=== PATIENT | male | born 1965 | race Caucasian/White ===

== ENCOUNTER → 2018-04-15 10:51 | Outpatient (CLI) | payer BC, SELFPAY ==
--- NOTE | 2018-04-15 11:03 | US_ITS ---
US abd. aorta screening HISTORY: ITS.REASON: MIDLINE THORACIC BACK PAIN,SHARP PAIN ORDERING PHYSICIAN: Karen Rowland PATIENT AGE: 52 years Comparison: None FINDINGS: There is no evidence of abdominal aortic aneurysm. Small amount of plaque is present within the abdominal aorta. Proximal common iliacs are unremarkable T2 to approximately 1 cm. IMPRESSION: No evidence of abdominal aortic aneurysm
--- NOTE | 2018-04-15 11:07 | XR_ITS ---
XR chest 2V HISTORY: ITS.REASON: THORACIC BACK PAIN ORDERING PHYSICIAN: Karen Rowland PATIENT AGE: 52 years COMPARISON: None FINDINGS: The cardiomediastinal silhouette and pulmonary vascularity are within normal limits. The lungs are clear without infiltrates, suspicious nodules, or pleural effusions. There is vague nodularity noted at the fifth interspace on the left anteriorly could even be due to a nipple shadow. This may be confirmed with follow-up. No acute bony abnormalities. IMPRESSION: No acute finding
[2018-04-15 13:16] LABS: Basophils % 0.5 % (0.1-2.0); Eosinophils # 0.1 K/mm3 (0.0-0.4); Eosinophils % 0.9 % (0.1-12.0); Hematocrit 54.6 % (42.0-52.0); Hemoglobin 17.8 g/dL (14.1-18.0); Lymphocytes # 2.6 K/mm3 (0.7-4.5); Lymphocytes % 37.4 % (10-50); Mean Corpuscular HGB Conc 32.6 g/dL (31.8-35.4); Mean Corpuscular Hemoglobin 30.4 pg (27.0-31.2); Mean Corpuscular Volume 93.3 fl (80-94); Mean Platelet Volume 7.4 fl (7.4-10.4); Monocytes # 0.4 K/mm3 (0.1-1.0); Monocytes % 5.1 % (1.7-9.3); Neutrophils # 3.8 K/mm3 (1.8-7.8); Platelet Count 234 K/mm3 (142-424); Red Blood Count 5.86 M/mm3 (4.60-6.20); Red Cell Distribution Width 12.5 % (11.5-17.5); White Blood Count 6.9 K/mm3 (4.8-10.8)
[2018-04-15 15:52] LABS: D-Dimer 168 ng/mL (0-400)
[2018-04-15 16:19] LABS: Alanine Aminotransferase 52 U/L (12-78); Alkaline Phosphatase 107 U/L (46-116); Anion Gap 15.2 mEq/L (5-15); Aspartate Amino Transferase 27 U/L (15-37); Bilirubin,Total 1.2 mg/dL (0.2-1.0); Blood Urea Nitrogen 12 mg/dL (7-18); Calcium 9.7 mg/dL (8.5-10.1); Carbon Dioxide 27 mmol/L (21.0-32.0); Chloride 101 mmol/L (98-107); Creatinine,Serum 0.89 mg/dL (0.70-1.30); Estimated Glomerular Filt Rate 90 ml/min (>60); GFR (African American) 109 ML/MIN (>60); Globulin 4.1 gm/dl (1.3-3.2); Glucose 94 mg/dL (74-106); Potassium 5.2 mmoL/L (3.5-5.1); Sodium 138 mmol/L (136-145); Total Protein,Serum 8.1 gm/dL (6.4-8.2); Troponin I < 0.02 ng/ml (0.00-0.06)
== END ==
PROVIDERS: PCP Nurse Practitioner; Visit Provider Nurse Practitioner
DX: M54.6 Pain in thoracic spine (principal); R52 Pain, unspecified
CPT/HCPCS: 36415; 71046; 76705; 80053; 83880; 84484; 85025; 85378

== ENCOUNTER → 2018-07-09 10:19 | Outpatient (CLI) | payer BC, SELFPAY ==
--- NOTE | 2018-07-09 10:27 | XR_ITS ---
XR knee RT 3V HISTORY: ITS.REASON: SWELLING OF RIGHT KNEE JOINT ORDERING PHYSICIAN: Caitlyn Knott PATIENT AGE: 52 years COMPARISON: None FINDINGS: No fracture or dislocation. No lytic or blastic change. Normal mineralization. No significant arthritic changes evident. There is no definite effusion. There is mild soft tissue swelling over the patella and just inferior to the patella. No other significant findings, there are no foreign bodies. IMPRESSION: Possible mild prepatellar bursitis and/or possible focal contusion otherwise negative right knee
== END ==
PROVIDERS: PCP Nurse Practitioner Family; Visit Provider Nurse Practitioner Family
DX: M25.461 Effusion, right knee (principal)
CPT/HCPCS: 73562

== ENCOUNTER 2020-06-17 02:13 | Inpatient (IN) | payer BC, SELFPAY ==
[2020-06-17] VITALS (31 sets, daily range): BP systolic 103–151; BP diastolic 56–98; PULSE 49–89; RESP 14–20; TEMP 36.4–36.8; O2SAT 93–99; BMI 30.2; BMI 31.1
--- NOTE | 2020-06-17 | IR_ITS ---
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 COMPLICATIONS None Estimated Blood Loss: Less than 10 ML TECHNIQUE One percent lidocaine used to anesthetize the right anterior aspect of the wrist. The right radial artery was accessed via the Seldinger technique. A 6 Bengali sheath was placed in the right radial artery. 2.5 mg of verapamil, 800 mcg of nitroglycerin, 1mg Lidocaine and 5000 U Heparin were given through the arterial sheath. The Poppa catheter was also used to perform left heart catheterization, left ventriculogram and selective coronary angiogram. At the end the diagnostic angiogram therapeutic heparin was administered and the Poppa catheter was used to cannulate the right coronary artery. A Choice PT extra-support wire was used to push through the occlusion and a 2.5 x 12 mm balloon was deployed on 2 occasions in different areas to open the chronic occlusion. This restored antegrade flow. Following this a 3.0 x 38 mm Xience stent was deployed at 24 nacho reducing the stenosis to 0%. An additional 3 mm x 38 mm Xience stent was then deployed proximal to this overlapping the proximal edge of the first stent and deployed at 24 nacho. The balloon was advanced and deployed at 24 nacho in between the 2 stents. No reflow phenomenon occurred therefore 2 aliquots of 800 mcg of intracoronary nitroglycerin were administered which restored antegrade normal OTTO-3 flow. Distally there was improved flow with angiographic evidence of competitive flow from the distal collateralization from the LAD and septal perforators. At the end of the procedure the apparatus was removed the sheath was removed good hemostasis was achieved using TR banding patient was transferred to the postop holding in stable condition ANGIOGRAPHIC RESULTS The left main artery Normal The left anterior descending artery Has proximal 20 to 30% stenoses with mid vessel 20% stenosis and distal 30% stenoses The circumflex artery Is nondominant yet still a large vessel with proximal 20% stenosis. 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 Brilinta 90 twice daily plus aspirin 81 mg daily for 1 year 2. LDL less than 55 3. Cardiac rehabilitation 4. Avoidance of tobacco products 5. ETHAN inhibitors and beta-blockers once hemodynamically tolerable Electronically signed by : Lele Cintron, 06/17/2020 10:32:50
--- NOTE | 2020-06-17 02:09 | ECG_ITS ---
APPROVED REPORT Exam: Resting ECG HR:66 bpm ECG Measurements Heart Rate 66 AXES NC 126 P 49 QRSd 92 QRS 60 QT 398 T 102 QTc 417 Conclusion Normal sinus rhythm Nonspecific ST abnormality Abnormal ECG Electronically signed by : Zelalem Love, 06/17/2020 06:43:08
--- NOTE | 2020-06-17 02:25 | XR_ITS ---
PROCEDURE: XR CHEST PORTABLE CLINICAL HISTORY: cp Chest pain COMPARISON: CR CXR2V XR chest 2V from 04/15/2018 CR XR CHEST 2V from 04/19/2019 FINDINGS: There is cardiomegaly without failure. Nodular opacity noted overlying the left lower lobe and may be due to a granuloma. No lobar consolidation or collapse. COPD suspected. No acute bony findings. IMPRESSION: As above, no acute finding Dictated by: Aguilar Monae MD 06/17/2020 06:29 Aguilar Monae MD in [place] 06/17/2020 06:29
--- NOTE | 2020-06-17 02:28 | HMH.EDCP ---
ED Disposition Clinical Impression: Non-STEMI (non-ST elevated myocardial infarction), Tobacco use, Obesity (BMI 30.0-34.9) Disposition: Admitted As Inpatient Condition on Discharge: Good Referrals: Zelalem Butler MD [Primary Care Provider] - - Critical Care Critical Care Time: No Attestation: On 06/17/20, the high probability of a clinically significant, sudden or life threatening deterioration of the following system(s) required my full and direct attention, intervention and personal management. The time I documented below is in addition to time spent performing reported procedures but includes the following listed in this critical care notation. Medical Decision Making - Medical Records Medical records reviewed: Yes: I reviewed the patient's medical records. - Robert Inquiry Pt receiving controlled substance: No Vital Signs: 06/17/20 02:14 06/17/20 02:15 06/17/20 02:35 Temperature 97.5 F L Temperature Source Oral Pulse Rate [Right] 89 73 Respiratory Rate 18 Blood Pressure [Right Arm] 138/89 151/97 H Blood Pressure Mean [Right Arm] 105 115 Blood Pressure Source [Right Arm] Automatic Cuff Blood Pressure Position [Right Arm] Supine 02 Sat by Pulse Oximetry 96 95 96 Oxygen Delivery Method Room Air Room Air Oxygen Flow Rate (LPM) 2 06/17/20 02:44 06/17/20 03:00 Temperature Temperature Source Pulse Rate [Right] 83 67 Respiratory Rate 15 18 Blood Pressure [Right Arm] 123/76 120/77 Blood Pressure Mean [Right Arm] 91 91 Blood Pressure Source [Right Arm] Automatic Cuff Automatic Cuff Blood Pressure Position [Right Arm] Supine Supine 02 Sat by Pulse Oximetry 96 97 Oxygen Delivery Method Nasal Cannula Nasal Cannula Oxygen Flow Rate (LPM) 2 2 - Lab Data Lab results reviewed: Yes: I reviewed the patient's lab results. Lab Results 06/17/20 02:15: WBC 10.5, RBC 5.37, Hgb 16.4, Hct 50.5, MCV 93.9, MCH 30.6, MCHC 32.5, RDW 12.4, Plt Count 199, MPV 7.8, Neut % (Auto) 72.8, Lymph % (Auto) 21.1, [place] % (Auto) 5.2, Eos % (Auto) 0.5, Baso % (Auto) 0.4, Neut # (Auto) 7.6, Lymph # (Auto) 2.2, [place] # (Auto) 0.6, Eos # (Auto) 0.1, Baso # (Auto) 0.0 06/17/20 02:15: Sodium 141, Potassium 4.4, Chloride 108 H, Carbon Dioxide 28, Anion Gap 9.4, BUN 14, Creatinine 0.90, Estimated Creat Clear 125, Estimated GFR 88, Est GFR ( Amer) 107, Glucose 138 H, Calcium 9.3, Troponin I 0.06 H, C-Reactive Protein 3.9 06/17/20 02:15: ESR 6 06/17/20 02:15: Procalcitonin < 0.030 06/17/20 02:15: SARS-CoV-2 IgG Ab (Rapid) Negative, SARS-CoV-2 IgM Ab (Rapid) Negative Result diagrams: 06/17/20 02:15 06/17/20 02:15 Orders (Tests/Meds): ED MEDICATIONS Generic Name Dose Route Start Last Admin Trade Name Freq PRN Reason Stop Dose Admin Nitroglycerin 0.4 mg 06/17/20 02:26 06/17/20 02:31 Nitroglycerin 0.4mg Sl Tablet SL 07/17/20 02:25 0.4 mg Q5MINP PRN Administration Chest Pain Discontinued Medications Generic Name Dose Route Start Last Admin Trade Name Freq PRN Reason Stop Dose Admin Aspirin 324 mg 06/17/20 02:26 06/17/20 02:29 Aspirin 81mg Chewable Tablet PO 06/17/20 02:27 324 mg ONCE ONE Administration Morphine Sulfate 2 mg 06/17/20 02:28 06/17/20 02:31 Morphine 2mg/Ml Syringe IV 06/17/20 02:29 2 mg ONCE ONE Administration Morphine Sulfate 2 mg 06/17/20 02:35 06/17/20 02:36 Morphine 2mg/Ml Syringe IV 06/17/20 02:36 2 mg ONCE ONE Administration Nitroglycerin 1 gm 06/17/20 02:39 06/17/20 02:40 Nitroglycerin 1 Gm Ointment TD 06/17/20 02:40 1 gm ONCE ONE Administration Ticagrelor 180 mg 06/17/20 02:26 06/17/20 02:30 Ticagrelor 90mg Tablet PO 06/17/20 02:27 180 mg ONCE ONE Administration ORDERS Category Date Time Status Chest XR -- portable [XR chest portable] Stat Exams 06/17/20 02:25 Taken Full Resp Panel w/COVID ([facility]) Routine Lab 06/17/20 02:15 Received Troponin I Q3H Lab 06/17/20 05:30 Ordered Troponin I Q3H Lab
--- NOTE | 2020-06-17 02:36 | PC.NURSE ---
place on oxygen due to cardiac changes on EKG - 12-lead
--- NOTE | 2020-06-17 02:41 | ECG_ITS ---
APPROVED REPORT Exam: Resting ECG HR:65 bpm ECG Measurements Heart Rate 65 AXES ID 132 P 55 QRSd 88 QRS 49 QT 426 T 71 QTc 443 Conclusion Normal sinus rhythm NSSTTW abnormality Abnormal ECG Electronically signed by : Zelalem Love, 06/17/2020 06:42:56
[2020-06-17 02:55] LABS: Adenovirus,PCR Not Detected (NotDetected); Bordetella Pertussis Not Detected (NotDetected); Chlamydophila Pneumoniae, PCR Not Detected (NotDetected); Coronavirus 19, PCR Not Detected (NotDetected); Coronavirus 229E Not Detected (NotDetected); Coronavirus NL63 Not Detected (NotDetected); Coronavirus OC43 Not Detected (NotDetected); Coronovirus HKU1,PCR Not Detected (NotDetected); Human Metapneumovirus Not Detected (NotDetected); Influenza A, PCR Not Detected (NotDetected); Influenza AH1, 2009 Not Detected (NotDetected); Influenza AH1, PCR Not Detected (NotDetected); Influenza AH3,PCR Not Detected (NotDetected); Influenza B, PCR Not Detected (NotDetected); Mycoplasma Pneumoniae, PCR Not Detected (NotDetected); Parainfluenza 1, PCR Not Detected (NotDetected); Parainfluenza 2, PCR Not Detected (NotDetected); Parainfluenza 3, PCR Not Detected (NotDetected); Parainfluenza 4, PCR Not Detected (NotDetected); Respiratory Syncytial Virus Not Detected (NotDetected); Rhinovirus/Enterovirus Not Detected (NotDetected)
[2020-06-17 02:57] LABS: Basophils % 0.4 % (0.1-2.0); Eosinophils # 0.1 K/mm3 (0.0-0.4); Eosinophils % 0.5 % (0.1-12.0); Hematocrit 50.5 % (42.0-52.0); Hemoglobin 16.4 g/dL (14.1-18.0); Lymphocytes # 2.2 K/mm3 (0.7-4.5); Lymphocytes % 21.1 % (10-50); Mean Corpuscular HGB Conc 32.5 g/dL (31.8-35.4); Mean Corpuscular Hemoglobin 30.6 pg (27.0-31.2); Mean Corpuscular Volume 93.9 fl (80-94); Mean Platelet Volume 7.8 fl (7.4-10.4); Monocytes # 0.6 K/mm3 (0.1-1.0); Monocytes % 5.2 % (1.7-9.3); Neutrophils # 7.6 K/mm3 (1.8-7.8); Neutrophils % 72.8 % (37.0-80.0); Platelet Count 199 K/mm3 (142-424); Red Blood Count 5.37 M/mm3 (4.60-6.20); Red Cell Distribution Width 12.4 % (11.5-17.5); White Blood Count 10.5 K/mm3 (4.8-10.8)
[2020-06-17 03:02] LABS: Chloride 108 mmol/L (98-107); Potassium 4.4 mmoL/L (3.5-5.1); Sodium 141 mmol/L (136-145)
[2020-06-17 03:05] LABS: Anion Gap 9.4 mEq/L (5-15); Blood Urea Nitrogen 14 mg/dl (9-20); Calcium 9.3 mg/dl (8.4-10.2); Carbon Dioxide 28 mmol/L (22.0-30.0); Creatinine Clearance Estimated 125 mL/min (50-200); Estimated Glomerular Filt Rate 88 ml/min (>60); GFR (African American) 107 ML/MIN (>60); Glucose 138 mg/dl (74-100)
[2020-06-17 03:11] LABS: C-Reactive Protein 3.9 mg/L (0-4)
[2020-06-17 03:19] LABS: Coronavirus 19 IgG Antibody Negative (Negative); Coronavirus 19 IgM Antibody Negative (Negative); Troponin I 0.06 ng/ml (0.00-0.034)
[2020-06-17 03:21] LABS: Erythrocyte Sedimentation Rate 6 mm/hr (0-20)
[2020-06-17 03:50] LABS: Procalcitonin < 0.030 ng/mL (0.0-2.0)
[2020-06-17 04:15] LABS: Cholesterol 280 mg/dl (140-200); HDL Cholesterol 47 mg/dl (40-60); Triglycerides 175 mg/dl (30-150); VLDL Cholesterol 35 mg/dL (0-40)
[2020-06-17 04:26] LABS: Direct LDL Cholesterol 191.53 mg/dL (100-129)
--- NOTE | 2020-06-17 04:47 | PC.NURSE ---
patient up to floor via wheelchair.
--- NOTE | 2020-06-17 06:32 | PC.NURSE ---
Pt is currently receiving echo at this time. He arrived to floor c/o soa. O2 2L NC applied per chest pain protocol and comfort. Has also c/o chest pressure, but states it has improved. Pt administered morphine 4 mg IV and has Nitro paste in place. Pt is currently sinus clari on telemetry. He is NPO for cardiac consult. No other concerns at this time. Will continue to monitor.
--- NOTE | 2020-06-17 06:53 | HMH.HP ---
*Admission Date: 06/17/20 *Chief complaint: Chest tightness *History of present illness: 54-year-old male with with no significant past medical history was awoken from sleep around 10:30 PM yesterday evening with tightness in his chest that radiated up towards his neck and into both arms to the level of the elbow. Patient initially thought he was just sore from recently beginning an exercise program. However when the chest tightness did not improve and patient noted associated shortness of breath and mild diaphoresis he came to the emergency department. In the ER patient's chest pressure was relieved with morphine and nitroglycerin. Initial assessment showed an abnormal EKG with ST depressions laterally. EKG normalized after treatment of patient's chest pressure. ER physician spoke with cardiology and plan was to admit with left heart catheterization later today. Patient has had recurrence of chest pressure within the last hour that was successfully resolved with use of morphine. Patient is a 1-1/2 pack/day smoker for the last 30 years. There is a family history of coronary artery disease in the patient's father. [facility] History I have reviewed the patient's past medical history: Yes Medical History: Denies:: Diabetes Mellitus Type 1, Diabetes Mellitus Type 2, MRSA *Have you ever received a pneumonia vaccine?: No *Have you received a flu vaccine this season?: No - *Social History Smoking Status: Current every day smoker Tobacco Type: cigarettes # Packs/Day (cigarettes): 2 Alcohol Intake: current Alcohol Intake Frequency:: 3 or more drinks per day Substance Use Type: marijuana *Occupational Status:: employed *Travel in the last 8 weeks: None Family Hx:: Stroke Review of Systems - Constitutional Denies body ache(s), Denies chills, Denies lack of energy - ENT Denies abnormal hearing, Denies difficulty swallowing - *Cardiovascular Reports chest pain, Reports chest pain at rest, Denies chest pain with activity, Denies leg pain with activity, Denies excessive sweating, Denies irregular heart rhythm - *Respiratory Denies change in phlegm color, Denies chest congestion, Denies cough, Denies shortness of breath - *Gastrointestinal Denies belching, Denies bloating, Denies loose stools, Denies heartburn - *Genitourinary Denies difficulty urinating, Denies painful urination - *Musculoskeletal Denies abnormal walking, Denies joint pain, Denies decreased muscle mass - *Neurologic Denies headache(s), Denies seizure-like activity Meds Home Medications Medication Instructions Recorded Confirmed Type No Known Home Medications 06/17/20 06/17/20 History Allergies Allergy/AdvReac Type Severity Reaction Status Date / Time codeine Allergy Verified 06/17/20 02:41 Exam Vital signs and Labs for Last 24 Hours: Temp Pulse Resp BP Pulse Ox 98.2 F 68 19 116/58 L 98 06/17/20 05:12 06/17/20 05:12 06/17/20 05:12 06/17/20 05:12 06/17/20 05:12 Laboratory Results - last 24 hr 06/17/20 02:15: WBC 10.5, RBC 5.37, Hgb 16.4, Hct 50.5, MCV 93.9, MCH 30.6, MCHC 32.5, RDW 12.4, Plt Count 199, MPV 7.8, Neut % (Auto) 72.8, Lymph % (Auto) 21.1, [place] % (Auto) 5.2, Eos % (Auto) 0.5, Baso % (Auto) 0.4, Neut # (Auto) 7.6, Lymph # (Auto) 2.2, [place] # (Auto) 0.6, Eos # (Auto) 0.1, Baso # (Auto) 0.0 06/17/20 02:15: Sodium 141, Potassium 4.4, Chloride 108 H, Carbon Dioxide 28, Anion Gap 9.4, BUN 14, Creatinine 0.90, Estimated Creat Clear 125, Estimated GFR 88, Est GFR ( Amer) 107, Glucose 138 H, Calcium 9.3, Troponin I 0.06 H, C-Reactive Protein 3.9 06/17/20 02:15: Chlamy pneumoniae PCR Not detected, Adenovirus (PCR) Not detected, B. pertussis DNA (PCR) Not detected, Coronavirus OC43 (PCR) Not detected, Coronavirus HKU1 (PCR) Not detected, Coronavirus 229E (PCR) Not detected, SARS-CoV-2 (PCR) Not detected, Coronavirus NL63 (PCR) Not detected, Human Metapneumovir PCR Not detected, Influenza A (H1) PCR Not detected, Influ A (H1N1/
[2020-06-17 07:03] LABS: Troponin I 0.52 ng/ml (0.00-0.034)
--- NOTE | 2020-06-17 07:05 | PC.NURSE ---
notified of Troponin 0.52
--- NOTE | 2020-06-17 07:15 | CA_ITS ---
APPROVED REPORT EXAM: Comprehensive 2D, Doppler, and color-flow Echocardiogram Grain Shoveler: Socorro Vargas RVT Ht: 5 ft 9 in Wt: 205lbs BSA: 2.09 BP: 151/97 mmHg Indications: NSTEMI,ABN EKF,ELEVATED TROP,SMOKER TDS-BODY HABITUS 2D Dimensions IVSd 1.35 cm M: 0.6-1.2 LVEF (Visual) 59.70 % PWd 0.78 cm M: 0.6 - 1.2 LA Volume 16.90 mL LVDd 6.03 cm M: 4.2 - 5.9 LA Volume Index 8.12 mL/m2 (M/F) 16-34 LVDs 4.08 cm M: 2.5 - 4.0 LVOT 1.66 cm (M/F) 1.5-2.5 M-Mode Dimensions LA Diam 3.65 cm (1.9-4.0) Ao Diam 3.37 cm (2.0-3.7) LV Diastology E Decel Time 190.00 (160-240 msec) E/A Ratio 0.8 MED E' 8.10 (< 7 cm/sec) E'/MED E' Ratio 7.83 (>14) LAT E' 8.40 (<10 cm/sec) E/LAT E' Ratio 7.55 (>14) Mitral Valve MV E Max [place]. 63.00 (40-130 cm/s) MV A Velocity 77.00 (40-130 cm/s) E/A Ratio 0.83 MV Decel. Time 190.00 (160-240 ms) MV PHT 56.00 ms Pulmonary Valve PV Peak Velocity 77.00 (50-150 cm/s) Tricuspid Valve TR P. Velocity 256.00 cm/s RAP Estimate 10.00 mmHg RVSP 36.30 mmHg Left Ventricle Technically difficult study because of the patient fact in poor acoustic windows. Left atrium is mildly enlarged, left ventricle is normal size, mild concentric left ventricular hypertrophy, visually estimated ejection fraction 50%, inferior basal wall appears to be moderately hypokinetic, endocardial surfaces are poorly visualized. Diastolic parameters are inconclusive. Right Ventricle Right atrium and right ventricle are mildly enlarged with normal contractility. Aortic Valve Aortic valve is thickened and calcified leaflet continue to display good mobility, there is no aortic stenosis or aortic insufficiency. Mitral Valve Mitral valve is grossly normal, there is trace mitral regurgitation. Tricuspid Valve Tricuspid valve is grossly normal, there is mild tricuspid regurgitation, calculated right ventricular systolic pressure 26 mmHg. Pulmonic Valve Pulmonic valve is poorly visualized. Great Vessels Aortic root is normal size. Inferior vena cava is mildly dilated with normal inspiratory collapse. Pericardium No significant pericardial effusion noted. Conclusion 1. Technically difficult study because of the patient factors and poor acoustic windows. Biatrial enlargement, normal left ventricular size, mild concentric left ventricular hypertrophy, visually estimated ejection fraction 50% with segmental wall motion abnormality described above, diastolic parameters are inconclusive. 2. Mildly enlarged right ventricle with normal contractility. 3. Trace mitral mild tricuspid regurgitation, calculated right ventricular systolic pressure 36 mmHg. 4. No significant pericardial effusion noted. 5. Inferior vena cava is mildly dilated with normal inspiratory collapse. Electronically signed by : Zain Mendez, 06/17/2020 09:50:10
--- NOTE | 2020-06-17 08:32 | P.CONPHA_ITS ---
[facility] Pharmacy VTE Monitoring - Patient Demographics Admission date: 06/17/20 Report Date: 06/17/20 Time: 08:32 Allergies/Adverse Reactions: Patient Allergies codeine Allergy (Verified 06/17/20 02:41) Height: 1.77 m Weight: 97.182 kg Patient Problems: Current Active Problems Non-STEMI (non-ST elevated myocardial infarction) (Acute) Tobacco use (Acute) Obesity (BMI 30.0-34.9) (Acute) Cigarette smoker (Acute) - VTE Risk Labs: VTE Related Lab Results Hgb 16.4 g/dL (14.1-18.0) 06/17/20 02:15 Hct 50.5 % (42.0-52.0) 06/17/20 02:15 Plt Count 199 K/mm3 (142-424) 06/17/20 02:15 BUN 14 mg/dl (9-20) 06/17/20 02:15 Creatinine 0.90 mg/dl (0.66-1.25) 06/17/20 02:15 Estimated Creat Clear 125 mL/min (50-200) 06/17/20 02:15 Was VTE Risk Assessment Performed: Yes VTE Risk Level: Low Risk Clinical Trial Participant: No - Prophylaxis VTE Prophylaxis Ordered?: Yes Types of VTE Prophylaxis: TEDS Knee High
--- NOTE | 2020-06-17 08:44 | HMH.CNCARD ---
History of Present Illness Consult date: 06/17/20 Requesting physician: Zelalem Butler Consult reason: chest pain Chief complaint: chest pain History of present illness: This is a 54 year old white gentleman who was admitted to the hospital with a non-STEMI. He states chest pain woke him up around 10:30 PM last night. He states that this was a pressure heavy sensation in the substernal aspect of his chest radiating to his bilateral arms down to about the elbows bilaterally and also radiating up into his neck and into his back. He states this is associated with shortness of breath and diaphoresis. He denies any nausea or vomiting. The patient states that his pain was 7 out of 10 in intensity and was constant for several hours. He states around 2 AM he decided to come into the emergency department he states that his symptoms did not improve until he was treated with morphine and nitroglycerin in the emergency department. He did have an abnormal EKG showing ST depression laterally on admission and then when he was treated with the morphine and nitroglycerin his EKG did improve. He denies any fever, chills, nausea, vomiting, diarrhea, PND or orthopnea. [facility] History I have reviewed the patient's past medical history: Yes Medical History: Denies:: Diabetes Mellitus Type 1, Diabetes Mellitus Type 2, MRSA *Have you ever received a pneumonia vaccine?: No *Have you received a flu vaccine this season?: No - *Social History Smoking Status: Current every day smoker Tobacco Type: cigarettes # Packs/Day (cigarettes): 2 Alcohol Intake: current Alcohol Intake Frequency:: 3 or more drinks per day Substance Use Type: marijuana *Occupational Status:: employed *Travel in the last 8 weeks: None Family Hx:: Stroke Meds Home Medications Medication Instructions Recorded Confirmed Type No Known Home Medications 06/17/20 06/17/20 History Allergies Allergy/AdvReac Type Severity Reaction Status Date / Time codeine Allergy Verified 06/17/20 02:41 Exam Vital signs and Labs for Last 24 Hours: Temp Pulse Resp BP Pulse Ox 97.6 F 63 18 118/61 97 06/17/20 08:00 06/17/20 08:00 06/17/20 08:00 06/17/20 08:00 06/17/20 08:00 Laboratory Results - last 24 hr 06/17/20 02:15: WBC 10.5, RBC 5.37, Hgb 16.4, Hct 50.5, MCV 93.9, MCH 30.6, MCHC 32.5, RDW 12.4, Plt Count 199, MPV 7.8, Neut % (Auto) 72.8, Lymph % (Auto) 21.1, [place] % (Auto) 5.2, Eos % (Auto) 0.5, Baso % (Auto) 0.4, Neut # (Auto) 7.6, Lymph # (Auto) 2.2, [place] # (Auto) 0.6, Eos # (Auto) 0.1, Baso # (Auto) 0.0 06/17/20 02:15: Sodium 141, Potassium 4.4, Chloride 108 H, Carbon Dioxide 28, Anion Gap 9.4, BUN 14, Creatinine 0.90, Estimated Creat Clear 125, Estimated GFR 88, Est GFR ( Amer) 107, Glucose 138 H, Calcium 9.3, Troponin I 0.06 H, C-Reactive Protein 3.9 06/17/20 02:15: Chlamy pneumoniae PCR Not detected, Adenovirus (PCR) Not detected, B. pertussis DNA (PCR) Not detected, Coronavirus OC43 (PCR) Not detected, Coronavirus HKU1 (PCR) Not detected, Coronavirus 229E (PCR) Not detected, SARS-CoV-2 (PCR) Not detected, Coronavirus NL63 (PCR) Not detected, Human Metapneumovir PCR Not detected, Influenza A (H1) PCR Not detected, Influ A (H1N1/09) PCR Not detected, Influenza A (H3) PCR Not detected, Influenza Type A (PCR) Not detected, Influenza Type B (PCR) Not detected, M. pneumoniae (PCR) Not detected, Parainfluenza 1 (PCR) Not detected, Parainfluenza 2 (PCR) Not detected, Parainfluenza 3 (PCR) Not detected, Parainfluenza 4 (PCR) Not detected, RSV (PCR) Not detected, Entero/Rhino (PCR) Not detected 06/17/20 02:15: ESR 6 06/17/20 02:15: Procalcitonin < 0.030 06/17/20 02:15: SARS-CoV-2 IgG Ab (Rapid) Negative, SARS-CoV-2 IgM Ab (Rapid) Negative 06/17/20 02:15: Triglycerides 175 H, Cholesterol 280 H, LDL Cholesterol Direct 191.53 H, VLDL Cholesterol 35, HDL Cholesterol 47, Cholesterol/HDL Ratio 6.0 H 06/17/20 05:39: Troponin I 0.52 H I & O for Last 24 hours: Intake & Output 05/27
[2020-06-17 08:57] LABS: Troponin I 1.65 ng/ml (0.00-0.034)
[2020-06-17 10:54] LABS: CATHL Activated Clotting Time 333 SEC (74-125)
--- NOTE | 2020-06-17 20:15 | PC.NURSE ---
PT IS RESTING IN BED. PT HAS BEEN AMBULATING IN THE ROOM AND TO THE BATHROOM. NO COMPLAINTS OF CHEST PAIN BUT PT STATES HE HAS WOKE UP A FEW TIMES FROM A DEEP SLEEP WITH SOME SOA. PT REALLY WANTS TO GO HOME TOMORROW. VSS. PT HAS BEEN SINUS CASEY/NSR T/O THE SHIFT. O2 SATURATION 95-99% ON ROOM AIR. DRESSING TO THE RT RADIAL C/D/I. LUNG SOUNDS CLEAR. ABDOMEN SOFT/NON TENDER WITH ACTIVE BOWEL SOUNDS
[2020-06-18] VITALS: BP 110/90; PULSE 70; PULSE 73; RESP 17; TEMP 36.7; O2SAT 94
[2020-06-18 04:00] VITALS: BP 143/92; PULSE 60; PULSE 71; RESP 17; TEMP 36.6; O2SAT 93
[2020-06-18 06:00] VITALS: BMI 31.0
[2020-06-18 06:54] LABS: Basophils % 0.3 % (0.1-2.0); Eosinophils # 0.1 K/mm3 (0.0-0.4); Eosinophils % 0.8 % (0.1-12.0); Hematocrit 48.6 % (42.0-52.0); Hemoglobin 16.2 g/dL (14.1-18.0); Lymphocytes # 2.5 K/mm3 (0.7-4.5); Lymphocytes % 27.9 % (10-50); Mean Corpuscular HGB Conc 33.3 g/dL (31.8-35.4); Mean Corpuscular Hemoglobin 31.2 pg (27.0-31.2); Mean Corpuscular Volume 93.6 fl (80-94); Mean Platelet Volume 8.2 fl (7.4-10.4); Monocytes # 0.5 K/mm3 (0.1-1.0); Monocytes % 5.5 % (1.7-9.3); Neutrophils # 5.8 K/mm3 (1.8-7.8); Neutrophils % 65.5 % (37.0-80.0); Platelet Count 182 K/mm3 (142-424); Red Blood Count 5.19 M/mm3 (4.60-6.20); Red Cell Distribution Width 12.5 % (11.5-17.5); White Blood Count 8.8 K/mm3 (4.8-10.8)
[2020-06-18 06:56] LABS: Chloride 108 mmol/L (98-107); Potassium 4.1 mmoL/L (3.5-5.1); Sodium 140 mmol/L (136-145)
[2020-06-18 06:59] LABS: Anion Gap 8.1 mEq/L (5-15); Blood Urea Nitrogen 7 mg/dl (9-20); Carbon Dioxide 28 mmol/L (22.0-30.0); Creatinine Clearance Estimated 147 mL/min (50-200); Estimated Glomerular Filt Rate 101 ml/min (>60); GFR (African American) 122 ML/MIN (>60)
[2020-06-18 07:00] LABS: Calcium 9.2 mg/dl (8.4-10.2); Glucose 121 mg/dl (74-100)
--- NOTE | 2020-06-18 07:11 | HMH.DCSUM ---
General - General Admission date:: 06/17/20 Discharge date: 06/18/20 HPI HPI: 54-year-old male with with no significant past medical history was awoken from sleep around 10:30 PM yesterday evening with tightness in his chest that radiated up towards his neck and into both arms to the level of the elbow. Patient initially thought he was just sore from recently beginning an exercise program. However when the chest tightness did not improve and patient noted associated shortness of breath and mild diaphoresis he came to the emergency department. In the ER patient's chest pressure was relieved with morphine and nitroglycerin. Initial assessment showed an abnormal EKG with ST depressions laterally. EKG normalized after treatment of patient's chest pressure. ER physician spoke with cardiology and plan was to admit with left heart catheterization later today. Patient has had recurrence of chest pressure within the last hour that was successfully resolved with use of morphine. Patient is a 1-1/2 pack/day smoker for the last 30 years. There is a family history of coronary artery disease in the patient's father. Hospital Course Hospital Course: Patient was admitted for serial enzymes and cardiology consultation with anticipated left heart catheterization. Second troponin increased to 0.52 and peaked at 1.65. 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 Brilinta 90 twice daily plus aspirin 81 mg daily for 1 year 2. LDL less than 55 3. Cardiac rehabilitation 4. Avoidance of tobacco products 5. ETHAN inhibitors and beta-blockers once hemodynamically tolerable After left heart catheterization patient remained stable. Bradycardia was witnessed both before and after left heart catheterization. Patient was continued on a nicotine patch for his nicotine dependence dependence. Patient admitted to anxiety over being hospitalized and being unable to smoke. Conversation was had with the patient on the day of discharge regarding the need for smoking cessation. Other findings on patient's evaluation while hospitalized included increased right ventricular size and increased right ventricular systolic pressures. Patient will need both pulmonary function testing and a sleep study as an outpatient. He does admit to snoring. On June 18 patient was discharged home. He will follow-up in my office this June 21. Patient will follow up with cardiology per their instructions. Objective Vital signs: Temp Pulse Resp BP Pulse Ox 97.9 F 71 17 143/92 H 93 L 06/18/20 04:00 06/18/20 04:00 06/18/20 04:00 06/18/20 04:00 06/18/20 04:00 no acute distress - *Routine Respiratory Exam Present: CTA bilaterally - *Routine Cardiovascular Exam Present: RRR Results Labs on day of discharge: Labs from last 24 hours 06/18/20 06/18/20 06/17/20 06:04 06:04 11:21 WBC 8.8 RBC 5.19 Hgb 16.2 Hct 48.6 MCV 93.6 MCH 31.2 MCHC 33.3 RDW 12.5 Plt Count 182 MPV 8.2 Neut % (Auto) 65.5 Lymph % (Auto) 27.9 Porter % (Auto) 5.5 Eos % (Auto) 0.8 Baso % (Auto) 0.3 Neut # (Auto) 5.8 Lymph # (Auto) 2.5 Porter # (Auto) 0.5 Eos # (Auto) 0.1 Baso # (Auto) 0.0 Activated Clotting Time 333 H* Sodium 140 Potassium 4.1 Chloride 108 H Carbon Dioxide 28 Anion Gap 8.1 BUN 7 L D Creatinine 0.80 Estimated Creat Clear 147 Estimated GFR 101 Est GFR ( Amer) 122 Glucose 121 H
--- NOTE | 2020-06-18 07:40 | PC.NURSE ---
shift summary pts lung sounds are clear with sats maintained 93% or above on room air with a rate ranging from 17-20. pt was NSR and sinus clari on the monitor. pt is alert and oriented X4. pt denies any nausea vomiting, or diarrhea.
[2020-06-18 08:00] VITALS: BP 107/68; PULSE 70; RESP 17; TEMP 36.7; O2SAT 97
--- NOTE | 2020-06-18 10:38 | PC.NURSE ---
Did attempt to clarify it DR. Butler wanted pt on statin and Aleksander in pharmacy did as well, pt not to have beta riana or sonja until hymodynamically stable. Awaiting clarification at this time. Did speak with pts daughter after he was d/cd and make her aware of the above. Pt was very rdy to leave this am and left at 0858.
--- NOTE | 2020-06-18 10:46 | HMH.PHACLD ---
Alfred Qureshi has received discharge medication counseling on the following medications: BRILINTA, ASPIRIN, AND LIPITOR PATIENT IS TO HOLD OFF ON ACEI/BETA ENRICO UNTIL HEMODYNAMICALLY STABLE PER CARDIOLOGY. BRILINTA WAS BROUGHT UP TO PATIENT'S ROOM BY CLINIC PHARMACY AND OTHER PRESCRIPTIONS WERE SENT TO [facility] [place]. PATIENT VERBALIZED UNDERSTANDING AND HAD NO QUESTIONS AT THIS TIME. -SE GOMEZ, REKHAD
== END 2020-06-18 08:58 | disposition home or self-care (01) | DRG 247 ==
LOC: ER 04:05 → 2ND 04:08
PROVIDERS: Internal Medicine; Admitting Provider Family Medicine; Emergency Provider Emergency Medicine; PCP Family Medicine; Visit Provider Family Medicine
PROC: 027034Z Dilation of Coronary Artery, One Artery with Drug-eluting Intraluminal Device, Percutaneous Approach (ICD-10-PCS; principal; 2020-06-17 11:20)
DX: I21.4 Non-ST elevation (NSTEMI) myocardial infarction (principal); Z72.0 Tobacco use; Z82.49 Family history of ischemic heart disease and other diseases of the circulatory system
CPT/HCPCS: 36415; 71045; 80048; 80061; 84145; 84484; 85025; 85347; 85651; 86140; 86328; 87581; 87633; 87798; 92928; 93005; 93306; 93458; 96365; 96375; 96376; 99152; 99153; 99284; C1725; C1760; C1769; C1875; C9600; J1644; Q9967

== ENCOUNTER → 2020-06-27 13:17 | Outpatient (CLI) | payer BC, SELFPAY ==
[2020-06-27 13:52] LABS: Hematocrit 49.6 % (42.0-52.0)
[2020-06-27 14:35] LABS: Hemoglobin A1C 5.7 % (4.0-6.0)
[2020-06-27 14:50] LABS: Blood Urea Nitrogen 10 mg/dl (9-20); Estimated Glomerular Filt Rate 101 ml/min (>60); GFR (African American) 122 ML/MIN (>60)
== END ==
PROVIDERS: Visit Provider Internal Medicine
DX: I25.10 Atherosclerotic heart disease of native coronary artery without angina pectoris (principal)
CPT/HCPCS: 36415; 82565; 83036; 84520; 85014

== ENCOUNTER 2020-07-16 09:31 | Outpatient (RCR) | payer BC, SELFPAY | END 2020-11-01 13:07 | disposition home or self-care (01) | LOC: PT 09:31 | PROVIDERS: Visit Provider Physician Assistant | DX: I25.10 Atherosclerotic heart disease of native coronary artery without angina pectoris (principal); I25.2 Old myocardial infarction | CPT/HCPCS: 93798 ==

== ENCOUNTER → 2020-07-24 11:20 | Outpatient (CLI) | payer BC, SELFPAY ==
[2020-07-24 12:21] LABS: Anion Gap 14.3 mEq/L (5-15); Blood Urea Nitrogen 10 mg/dl (9-20); Calcium 9.6 mg/dl (8.4-10.2); Carbon Dioxide 27 mmol/L (22.0-30.0); Chloride 106 mmol/L (98-107); Estimated Glomerular Filt Rate 101 ml/min (>60); GFR (African American) 122 ML/MIN (>60); Glucose 99 mg/dl (74-100); Potassium 4.3 mmoL/L (3.5-5.1); Sodium 143 mmol/L (136-145)
== END ==
PROVIDERS: Visit Provider Physician Assistant
DX: R06.00 Dyspnea, unspecified (principal); I21.4 Non-ST elevation (NSTEMI) myocardial infarction; I25.10 Atherosclerotic heart disease of native coronary artery without angina pectoris; R94.31 Abnormal electrocardiogram [ECG] [EKG]; Z72.0 Tobacco use
CPT/HCPCS: 36415; 80048

== ENCOUNTER → 2020-09-25 13:28 | Outpatient (CLI) | payer BC, SELFPAY ==
[2020-09-25 14:18] LABS: Alanine Aminotransferase 37 U/L (12-78); Albumin Level 4.5 g/dl (3.5-5.0); Alkaline Phosphatase 87 U/L (38-126); Aspartate Amino Transferase 35 U/L (17-59); Bilirubin,Direct 0.2 mg/dl (0.0-0.4); Bilirubin,Indirect 0.8 mg/dL (0.0-0.9); Bilirubin,Unconjugated 0.8 mg/dL (0.0-1.1); Chol/HDL Ratio 2.8 (1-3.5); Cholesterol 127 mg/dl (140-200); HDL Cholesterol 46 mg/dl (40-60); Total Protein,Serum 7.1 g/dl (6.3-8.2); Triglycerides 212 mg/dl (30-150); VLDL Cholesterol 42 mg/dL (0-40)
[2020-09-25 14:29] LABS: Direct LDL Cholesterol 55.12 mg/dL (100-129)
== END ==
PROVIDERS: Visit Provider Urology
DX: E78.5 Hyperlipidemia, unspecified (principal)
CPT/HCPCS: 36415; 80061; 80076

== ENCOUNTER → 2021-01-10 06:12 | Outpatient (CLI) | payer BC, SELFPAY ==
--- NOTE | 2021-01-10 | CA_ITS ---
APPROVED REPORT Exam: Exercise Treadmill Technologist: Carolyne Wahl Ht: 5 ft 10 in Wt: 194 lbs BSA: 2.06 m2 HR: 69 bpm BP: 126/75 mmHg Indications: Shortness of Air Medical History Medications: Aspirin,,,,, Allopurinol,,,,, Atorvastatin,,,,, Nitroglycerin,,,,, ColCHIcine,,,,, TicaAGRELOR,,,,, Stress Test Details Test: Mily HR Resting HR: 74 bpm Max Heart Rate (APMHR): 166.793166 bpm Max HR Achieved: 120 bpm Target HR (85% APMHR): 141.880946 bpm % of APMHR: 72.29 Recovery HR: 70 bpm BP Resting BP: 126.0/75.0 mmHg Max BP: 164.0/80.0 mmHg Recovery BP: 138.0/85.0 mmHg ECG Resting ECG: Normal sinus rhythm Clinical Reason for Termination: Back pain Exercise duration: 10:00 min Highest Stage Achieved: Exercise capacity: 12.8 METs Stress ECG Conclusion Non-diagnostic stress test. Patient exercised on a mily protocol for 10 minutes to peak heart rate of 120 bpm (target heart rate 141 bpm) without chest pain or arrhythmias. Less than 1.[address] segment depression noted inferiorly and laterally at peak stress that returned to baseline early in recovery. Test stopped due to back pain/spasm. Total METS 12.8 with peak blood pressure of 161/82 mmHg. See the nuclear report for further information. Test Summary REST . . . . . . . Sitting REST . . . . . . . Standing REST 11:02 0.0 0.0 74 . 126/ 75 . . Stage 1 01:00 10.0 1.7 85 . . . . Stage 1 02:00 10.0 1.7 90 . . . . Stage 1 03:00 10.0 1.7 91 . 135/ 78 . . Stage 2 01:00 12.0 2.5 93 . . . . Stage 2 02:00 12.0 2.5 97 . . . . Stage 2 03:00 12.0 2.5 97 . 148/ 82 . . Stage 3 01:00 14.0 3.4 105 . . . . Stage 3 02:00 14.0 3.4 108 . . . . Stage 3 03:00 14.0 3.4 107 . 160/ 86 . . Stage 4 . . . . . . . Myoview Injected Stage 4 01:00 16.0 4.2 119 . . . Stop exercise at 10:00 RECOVERY 01:00 0.0 0.0 91 . . . . RECOVERY 02:00 0.0 0.0 91 . 164/ 80 . . RECOVERY 03:00 0.0 0.0 74 . 164/ 80 . . RECOVERY 04:00 0.0 0.0 78 . 164/ 80 . . RECOVERY 05:00 0.0 0.0 78 . 164/ 80 . . RECOVERY 06:00 0.0 0.0 68 . 164/ 80 . . RECOVERY 07:00 0.0 0.0 71 . 164/ 80 . . RECOVERY 07:15 0.0 0.0 82 . 164/ 80 . . Electronically signed by : Zain Mendez MD 01/10/2021 12:58:27
--- NOTE | 2021-01-10 06:13 | NM_ITS ---
APPROVED REPORT Exam: Nuclear Stress Test Indication: CAD s/p OH, hyperlipidemia, tob jx, sob, 2 stents Patient Location: Outpatient Stress Tech: Carolyne Wahl NM Tech:Elizabeth Warner, ARRT, RT (R)(N) Ht: 5 ft 9 in Wt: 190 lbs HR: 69 bpm BP: 126/75 mmHg BSA: 2.02 m2 BMI: 28.0 History: CAD s/p OH, hyperlipidemia, tob jx, sob, 2 stents Procedure: Patient exercised on [place] protocol 10:00 minutes and sec, resting heart rate 69 bpm, resting blood pressure 126/75 mmHg, with exercise maximum heart rate achived was 120 bpm which is 84 % of the maximum predicted heart rate and blood pressure was 160/86 mmHg. Patient denied any complaint of chest pain. Patient has good exercise capacity, achieved 12.8 METs of workload on treadmill, the blood pressure response to exercise was Adequate. Electrocardiogram Resting electrocardiogram shows sinus rhythm, with exercise there is less than 1.[address] segment depression noted from the baseline EKG. The EKG portion of the exercise Myoview is nondiagnostic as patient did not achieve the target heart rate. Cardiac Stress and Resting SPECT Images: Cardiac Stress and Resting SPECT images were obtained using technetium 99m Myoview 31.5 mCi stress and 10.51 mCi at rest. Gated SPECT for analysis of segmental wall motion and calculation of the ejection fraction also done. Cardiac stress and resting SPECT images show a fixed defect involving the posterior basal wall consistent with area of myocardial scarring without significant radha-infarct ischemia, compared right ejection fraction is 47% with moderate posterior basal wall hypokinesis. Right ventricle is normal size and contractility. Conclusion: 1. The EKG portion of the exercise Myoview was nondiagnostic as patient did not achieve the target heart rate, patient has good exercise capacity achieved 12.8 mets of workload on treadmill, the blood pressure response to exercise was adequate, there was no exercise-induced chest discomfort. 2. Scintigraphic evidence of myocardial scarring involving the posterior basal wall without significant radha-infarct ischemia, computer derived ejection fraction is 47% with segmental wall motion abnormality described above, right ventricle is normal size and contractility. 3. Abnormal exercise Myoview study. Electronically signed by : Zain Mendez MD 01/10/2021 13:03:11
== END ==
PROVIDERS: PCP Family Medicine; Visit Provider Internal Medicine Cardiovascular Disease
DX: R06.00 Dyspnea, unspecified (principal); I25.10 Atherosclerotic heart disease of native coronary artery without angina pectoris; E78.5 Hyperlipidemia, unspecified; Z72.0 Tobacco use
CPT/HCPCS: 78452; 93017; A9502

== ENCOUNTER → 2021-05-13 11:26 | Outpatient (CLI) | payer BC, SELFPAY | PROVIDERS: Visit Provider Nurse Practitioner | DX: Z20.822 Contact with and (suspected) exposure to COVID-19 (principal) | CPT/HCPCS: C9803; U0003; U0005 ==

== ENCOUNTER → 2022-01-19 15:34 | Outpatient (CLI) | payer BC, SELFPAY ==
[2022-01-19 15:58] LABS: Basophils # 0.1 K/mm3 (0-0.2); Basophils % 1.3 % (0.1-2.0); Eosinophils # 0.1 K/mm3 (0.0-0.4); Eosinophils % 0.6 % (0.1-12.0); Hemoglobin 16.6 g/dL (14.1-18.0); Lymphocytes # 2.9 K/mm3 (0.7-4.5); Lymphocytes % 28.1 % (10-50); Mean Corpuscular HGB Conc 32.6 g/dL (31.8-35.4); Mean Corpuscular Hemoglobin 31.2 pg (27.0-31.2); Mean Corpuscular Volume 95.7 fl (80-94); Monocytes # 0.5 K/mm3 (0.1-1.0); Monocytes % 4.8 % (1.7-9.3); Neutrophils # 6.8 K/mm3 (1.8-7.8); Neutrophils % 65.2 % (37.0-80.0); Platelet Count 237 K/mm3 (142-424); Red Blood Count 5.33 M/mm3 (4.60-6.20); Red Cell Distribution Width 12.8 % (11.5-17.5); White Blood Count 10.5 K/mm3 (4.8-10.8)
[2022-01-19 16:29] LABS: Anion Gap 15.2 mEq/L (5-15); Blood Urea Nitrogen 15 mg/dl (9-20); Carbon Dioxide 26 mmol/L (22.0-30.0); Chloride 102 mmol/L (98-107); Estimated Glomerular Filt Rate 100 ml/min (>60); GFR (African American) 121 ML/MIN (>60); Glucose 89 mg/dl (74-100); Potassium 4.2 mmoL/L (3.5-5.1); Sodium 139 mmol/L (136-145)
== END ==
PROVIDERS: PCP Family Medicine; Visit Provider Internal Medicine Cardiovascular Disease
DX: U07.1 COVID-19 (principal)
CPT/HCPCS: 36415; 80048; 85025; C9803; U0003; U0005

== ENCOUNTER 2022-01-30 07:26 | Day surgery (SDC) | payer BC, SELFPAY ==
[2022-01-30] VITALS (12 sets, daily range): BP systolic 105–151; BP diastolic 58–88; PULSE 59–74; RESP 13–18; O2SAT 93–97; BMI 30.7
--- NOTE | 2022-01-30 | IR_ITS ---
APPROVED REPORT Patient Location: Outpatient Opal Miner: LEONOR Orr RT (R) PROCEDURES Left heart catheterization Left ventriculogram Selective coronary angiogram INDICATION Accelerated angina pectoris, Known coronary artery disease Informed consent was obtained prior to the procedure. COMPLICATIONS none Estimated Blood Loss: less than 10 ml TECHNIQUE One percent lidocaine used to anesthetize the right anterior aspect of the wrist. The right radial artery was accessed via the Seldinger technique. A 6 Tu[place] sheath was placed in the right radial artery. 2.5 mg of verapamil, 800 mcg of nitroglycerin, 1mg Lidocaine and 5000 U Heparin were given through the arterial sheath. The papa catheter was also used to perform left heart catheterization, left ventriculogram and selective coronary angiogram. At the end of the procedure the sheath was removed good hemostasis was achieved using Traclet band, patient was transferred to the postop holding area in stable condition. ANGIOGRAPHIC RESULTS The left main artery Normal The left anterior descending artery Has proximal 20% stenoses with distal 10% stenoses The circumflex artery Is large codominant and has proximal 10 to 20% stenoses with a 40% stenosis in a large 3 mm third obtuse marginal artery The right coronary artery Is a codominant vessel and has stents in the proximal segment which are widely patent with minimal in-stent restenosis and excellent proximal and distal transitioning The TONG ventriculogram reveals Normal 65% The left ventricular end-diastolic pressure Moderate to severely elevated at 25 to 30 mmHg IMPRESSION Patent coronary arteries as described above with moderate disease in a large third obtuse marginal artery Normal ejection fraction Severely elevated LVEDP consistent with diastolic dysfunction PLAN 1. Recommend fluid restriction. 2. 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 LDL less than 55 to be achieved with high intensity statin 4. Medical management 5. Recommend sleep study Electronically signed by : Lele Cintron MD 01/30/2022 10:16:45
[2022-01-30 08:03] LABS: Basophils # 0.2 K/mm3 (0-0.2); Basophils % 2.1 % (0.1-2.0); Eosinophils # 0.1 K/mm3 (0.0-0.4); Eosinophils % 1.4 % (0.1-12.0); Hematocrit 50.8 % (42.0-52.0); Hemoglobin 16.8 g/dL (14.1-18.0); Lymphocytes # 2.5 K/mm3 (0.7-4.5); Lymphocytes % 28.1 % (10-50); Mean Corpuscular HGB Conc 33.2 g/dL (31.8-35.4); Mean Corpuscular Hemoglobin 31.2 pg (27.0-31.2); Mean Platelet Volume 7.9 fl (7.4-10.4); Monocytes # 0.4 K/mm3 (0.1-1.0); Monocytes % 4.8 % (1.7-9.3); Neutrophils # 5.6 K/mm3 (1.8-7.8); Neutrophils % 63.6 % (37.0-80.0); Platelet Count 204 K/mm3 (142-424); Red Cell Distribution Width 12.6 % (11.5-17.5); White Blood Count 8.8 K/mm3 (4.8-10.8)
[2022-01-30 08:06] LABS: Chloride 105 mmol/L (98-107); Sodium 140 mmol/L (136-145)
[2022-01-30 08:07] LABS: Potassium 4.4 mmoL/L (3.5-5.1)
[2022-01-30 08:09] LABS: Blood Urea Nitrogen 12 mg/dl (9-20); Creatinine Clearance Estimated 164 mL/min (50-200); Estimated Glomerular Filt Rate 117 ml/min (>60); GFR (African American) 142 ML/MIN (>60)
[2022-01-30 08:10] LABS: Anion Gap 12.4 mEq/L (5-15); Calcium 8.6 mg/dl (8.4-10.2); Carbon Dioxide 27 mmol/L (22.0-30.0); Glucose 115 mg/dl (74-100)
== END 2022-01-30 12:24 | disposition home or self-care (01) ==
LOC: CATHLAB 07:28
PROVIDERS: PCP Family Medicine; Visit Provider Internal Medicine
DX: I25.110 Atherosclerotic heart disease of native coronary artery with unstable angina pectoris (principal); F17.210 Nicotine dependence, cigarettes, uncomplicated; I25.2 Old myocardial infarction; Z95.5 Presence of coronary angioplasty implant and graft; I10 Essential (primary) hypertension; E78.5 Hyperlipidemia, unspecified; Z79.899 Other long term (current) drug therapy
CPT/HCPCS: 80048; 85025; 93458; 99152; C1725; C1769; J1644; Q9967

== ENCOUNTER → 2022-02-13 08:59 | Outpatient (CLI) | payer BC, SELFPAY ==
--- NOTE | 2022-02-13 09:34 | US_ITS ---
FINAL REPORT CLINICAL HISTORY: claudication right leg/numbness right leg,SMOKER,HTN,HLD,CAD FINDINGS: ANKLE-BRACHIAL PRESSURE INDICES Pressure indices are as follows: RIGHT LOWER EXTREMITY: Ankle-brachial pressure index: 1.02 Comments: Normal LEFT LOWER EXTREMITY: Ankle-brachial pressure index: 1.13 Comments: Normal CONCLUSION: No evidence of significant obstructive peripheral vascular disease of the lower extremities Reviewed, Interpreted and Dictated by Fidencio Velasquez III, MD Transcribed by Luba Lynn Authenticated and [facility]
[2022-02-13 09:39] LABS: Basophils # 0.1 K/mm3 (0-0.2); Eosinophils # 0.1 K/mm3 (0.0-0.4); Eosinophils % 1.4 % (0.1-12.0); Hematocrit 50.1 % (42.0-52.0); Hemoglobin 16.6 g/dL (14.1-18.0); Lymphocytes # 2.6 K/mm3 (0.7-4.5); Lymphocytes % 39.6 % (10-50); Mean Corpuscular HGB Conc 33.1 g/dL (31.8-35.4); Mean Corpuscular Hemoglobin 30.7 pg (27.0-31.2); Mean Corpuscular Volume 92.8 fl (80-94); Mean Platelet Volume 7.8 fl (7.4-10.4); Monocytes # 0.4 K/mm3 (0.1-1.0); Monocytes % 5.8 % (1.7-9.3); Neutrophils # 3.4 K/mm3 (1.8-7.8); Neutrophils % 52.2 % (37.0-80.0); Platelet Count 224 K/mm3 (142-424); Red Cell Distribution Width 12.5 % (11.5-17.5); White Blood Count 6.5 K/mm3 (4.8-10.8)
[2022-02-13 10:38] LABS: Chloride 100 mmol/L (98-107)
[2022-02-13 10:39] LABS: Potassium 4.1 mmoL/L (3.5-5.1); Sodium 138 mmol/L (136-145)
[2022-02-13 10:41] LABS: Alanine Aminotransferase 48 U/L (12-78); Albumin Level 4.7 g/dl (3.5-5.0); Alkaline Phosphatase 98 U/L (38-126); Anion Gap 14.1 mEq/L (5-15); Aspartate Amino Transferase 55 U/L (17-59); Blood Urea Nitrogen 13 mg/dl (9-20); Calcium 9.1 mg/dl (8.4-10.2); Carbon Dioxide 28 mmol/L (22.0-30.0); Cholesterol 168 mg/dl (140-200); Estimated Glomerular Filt Rate 117 ml/min (>60); GFR (African American) 142 ML/MIN (>60); Glucose 112 mg/dl (74-100); Total Protein,Serum 7.4 g/dl (6.3-8.2); Triglycerides 108 mg/dl (30-150); VLDL Cholesterol 22 mg/dL (0-40)
[2022-02-13 10:42] LABS: Chol/HDL Ratio 3.7 (1-3.5); HDL Cholesterol 45 mg/dl (40-60); Magnesium 1.7 mg/dl (1.6-2.3)
[2022-02-13 10:53] LABS: Direct LDL Cholesterol 93.63 mg/dL (100-129)
[2022-02-13 10:56] LABS: Free T4 (Free Thyroxine) 1.01 ng/dl (0.78-2.19)
[2022-02-13 11:13] LABS: Thyroid Stimulating Hormone 1.15 uIU/mL (0.465-4.68)
== END ==
PROVIDERS: PCP Family Medicine; Visit Provider Physician Assistant
DX: I70.213 Atherosclerosis of native arteries of extremities with intermittent claudication, bilateral legs (principal); I25.10 Atherosclerotic heart disease of native coronary artery without angina pectoris; I10 Essential (primary) hypertension; I21.4 Non-ST elevation (NSTEMI) myocardial infarction; E78.5 Hyperlipidemia, unspecified; F17.210 Nicotine dependence, cigarettes, uncomplicated; R94.31 Abnormal electrocardiogram [ECG] [EKG]; R20.0 Anesthesia of skin; Z72.0 Tobacco use; Z95.5 Presence of coronary angioplasty implant and graft
CPT/HCPCS: 36415; 80048; 80061; 80076; 83735; 84439; 84443; 85025; 93923

== ENCOUNTER 2022-12-13 15:43 | Emergency (ER) | payer BC, SELFPAY ==
[2022-12-13 15:44] VITALS: BP 118/67; PULSE 77; RESP 18; TEMP 36.8; O2SAT 98; BMI 29.5
--- NOTE | 2022-12-13 16:01 | HMH.EDGENADL ---
Discharge Plan Disposition Patient Disposition: Home, Self-Care Condition: Good Prescriptions Prescriptions: New epinephrine 0.3 mg/0.3 mL auto-injector 0.3 mg IM Q10M PRN (Reason: anaphylaxis) Qty: 2 0RF Rx Instructions: for 2 doses No Action nitroglycerin 0.4 mg tablet, sublingual 0.4 mg SUBLINGUAL Q5M PRN (Reason: chest pain) Qty: 20 0RF Rx Instructions: do not exceed 3 doses per episode atorvastatin [Lipitor] 80 mg tablet 80 mg PO DAILY Qty: 90 3RF losartan 50 mg tablet 50 mg PO DAILY Qty: 90 3RF aspirin 81 MG tablet,delayed release (DR/EC) 81 mg PO DAILY Referrals Follow up/Referrals: Zelalem Butler MD [Primary Care Provider] - See instructions Activity Restrictions/Add. Instructions Additional Instructions/Restrictions: At this time was felt you are safe to be discharged home. If new or worsening symptoms please do not hesitate to return the emergency department. If you feel your throat closing, significant difficulty breathing with worsening rash use your EpiPen and return to the ER. If any other new or worsening symptoms please do not hesitate to return for continued evaluation. 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 Clinical Impressions Clinical Impression: Allergic reaction, Wasp sting Discharge ED Provider: Amy Hannah General Adult HPI General Chief complaint: Allergic Reaction Stated complaint: bee sting about 3 hours ago,allergic Time Seen by Provider: 12/13/22 15:55 Mode of Arrival: Ambulatory Source of Information: Patient Limitations: No Limitations Description of Symptoms (Recalled from ER Triage Doc. by RN): Presents to ED with c/o right arm swelling secondary to wasp sting that occured at approx. 1130. Notable reddness and swelling. Denies difficulty breathing. Patient reports possibly being allergic to wasp but not having any Epi pens at home. 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 Patient was stung by a wasp on his volar proximal right forearm and has since had swelling. Denies shortness of breath, cough, vomiting, other rashes. The rash is red and swollen, not annular. No other acute complaints at this time. Related Data Home Medications Medication Instructions Recorded Confirmed aspirin 81 mg tablet,delayed 81 mg PO DAILY CAD 01/30/22 11/27/22 release Previous Rx's Medication Instructions Recorded nitroglycerin 0.4 mg sublingual 0.4 mg sublingual Q5M PRN chest 06/28/20 tablet pain #20 tabs atorvastatin 80 mg tablet (Lipitor) 80 mg PO DAILY High cholesterol 11/27/22 #90 tabs losartan 50 mg tablet 50 mg PO DAILY High blood pressure 11/27/22 #90 tabs epinephrine 0.3 mg/0.3 mL 0.3 mg (0.3 mL) IM Q10M PRN 12/13/22 injection, auto-injector anaphylaxis #2 ea Allergies Allergy/AdvReac Type Severity Reaction Status Date / Time codeine Allergy Verified 11/27/22 09:04 [facility] Disclaimer: The information contained in this section may have been updated after the patient was seen, as this information can be updated by other users. Medical History CAD (coronary artery disease) Diastolic dysfunction Dyspnea HTN (hypertension) Surgical History H/O cardiac catheterization History of coronary artery stent placement Social History Smoking Status: Current every day smoker tobacco type: cigarettes packs per day: 2 second hand exposure: Yes alcohol intake: current substance use type: marijuana current occupational status: employed Travel in the last 8 weeks: Inside the [place] caffeine: Yes ROS Obtained: Yes Systems reviewed as appropriate & no additional co
--- NOTE | 2022-12-13 16:16 | PC.NURSE ---
Rounded on patient
--- NOTE | 2022-12-13 16:21 | PC.NURSE ---
Epi pen instructions and how to administer provided to patient with no further questions. Patient verbalizes understand and was able to teach back administration of medication
[2022-12-13 16:23] VITALS: BP 114/72; PULSE 83; RESP 18; TEMP 36.8; O2SAT 98
== END 2022-12-13 16:23 | disposition home or self-care (01) ==
PROVIDERS: Emergency Provider Emergency Medicine; PCP Family Medicine
DX: R22.31 Localized swelling, mass and lump, right upper limb (principal); T63.461A Toxic effect of venom of wasps, accidental (unintentional), initial encounter; I25.10 Atherosclerotic heart disease of native coronary artery without angina pectoris; I11.9 Hypertensive heart disease without heart failure; F17.210 Nicotine dependence, cigarettes, uncomplicated
CPT/HCPCS: 96372; 99283

== ENCOUNTER 2023-09-30 18:00 | Outpatient (CLI) | payer BC, SELFPAY ==
--- NOTE | 2023-09-30 18:07 | MR_ITS ---
PROCEDURE INFORMATION: Exam: MR Head Without and With Contrast Exam date and time: 09/30/2023 6:22 PM Age: 58 years old Clinical indication: Weakness, extremity; Left; Additional info: CVA, left arm weakness TECHNIQUE: Imaging protocol: Magnetic resonance imaging of the head without and with contrast. Contrast material: PROHANCE; Contrast volume: 19 ml; Contrast route: IV; COMPARISON: No relevant prior studies available. FINDINGS: Brain: There are multiple T2/FLAIR subcortical and deep white matter hyperintense foci, which can be seen with reactive gliosis secondary to prior infectious, ischemic, or traumatic insults. No diffusion restriction to suggest acute ischemic process. No suspicious enhancement, masses, or mass effect. Cerebral ventricles: Normal. No ventriculomegaly. Bones: Unremarkable. Paranasal sinuses: Normal as visualized. No acute sinusitis. Mastoid air cells: Normal as visualized. No mastoid effusion. Orbital cavities: Unremarkable. Soft tissues: Unremarkable. IMPRESSION: 1. There are multiple T2/FLAIR subcortical and deep white matter hyperintense foci, which can be seen with reactive gliosis secondary to prior infectious, ischemic, or traumatic insults. 2. No diffusion restriction to suggest acute ischemic process. 3. No suspicious enhancement, masses, or mass effect.
[2023-09-30 18:29] LABS: Blood Urea Nitrogen 15 mg/dl (9-20); Estimated Glomerular Filt Rate 87 ml/min (>60); GFR (African American) 105 ML/MIN (>60)
[2023-09-30] MEDS: SODIUM CHLORIDE 0.9% 10ML SYR (RAD ONLY) 10 ML IV (19:06)
[2023-09-30] MEDS: GADOTERIDOL INJ 20ML SYRINGE 19 ML IV (19:06)
== END 2023-09-30 23:59 | disposition home or self-care (01) ==
PROVIDERS: PCP Family Medicine; Visit Provider Family Medicine
DX: I63.9 Cerebral infarction, unspecified (principal); R29.898 Other symptoms and signs involving the musculoskeletal system; I10 Essential (primary) hypertension; I25.2 Old myocardial infarction; F17.210 Nicotine dependence, cigarettes, uncomplicated
CPT/HCPCS: 36415; 70553; 82565; 84520; A9576

== ENCOUNTER 2023-10-16 08:50 | Emergency (ER) | payer BC, SELFPAY ==
[2023-10-16 08:51] VITALS: BP 146/68; PULSE 82; RESP 18; TEMP 36.6; O2SAT 96; BMI 31.7
--- NOTE | 2023-10-16 08:59 | ED_ITS ---
Discharge Plan Disposition Patient Disposition: Home, Self-Care Condition: Good Prescriptions Prescriptions: New triamcinolone acetonide 0.5 % cream 1 applic topical TID Qty: 15 0RF No Action nitroglycerin 0.4 mg tablet, sublingual 0.4 mg SUBLINGUAL Q5M PRN (Reason: chest pain) Qty: 20 0RF Rx Instructions: do not exceed 3 doses per episode atorvastatin [Lipitor] 80 mg tablet 80 mg PO DAILY Qty: 90 3RF losartan 50 mg tablet 50 mg PO DAILY Qty: 90 3RF epinephrine 0.3 mg/0.3 mL auto-injector 0.3 mg IM Q10M PRN (Reason: anaphylaxis) Qty: 2 0RF Rx Instructions: for 2 doses aspirin 81 MG tablet,delayed release (DR/EC) 81 mg PO DAILY Referrals Follow up/Referrals: Zelalem Butler MD [Primary Care Provider] - See instructions Activity Restrictions/Add. Instructions Additional Instructions/Restrictions: Take Benadryl as needed for allergic reaction. Ice pack to site to decrease swelling and itching. Apply cream as prescribed. If symptoms persist or worse, return to clinic or go to primary care provider. Clinical Impressions Clinical Impression: Allergic reaction to wasp sting Instructions Patient Instructions: DI for Insect Bites and Stings Discharge ED Provider: Tarah Sullivan [facility] General Stated complaint: stung by wasp, allergic, needs shot Time Seen by Provider: 10/16/23 08:58 History of Present Illness Provider Complaint: Pt states that he was stung yesterday on his right elbow and it is red, swollen, and itching. He reports that he keeps an epi pen at work, but did not have one at home. He denies any treatment. Related Data Home Medications Medication Instructions Recorded Confirmed aspirin 81 mg tablet,delayed 81 mg PO DAILY CAD 01/30/22 11/27/22 release Previous Rx's Medication Instructions Recorded nitroglycerin 0.4 mg sublingual 0.4 mg sublingual Q5M PRN chest 06/28/20 tablet pain #20 tabs atorvastatin 80 mg tablet (Lipitor) 80 mg PO DAILY High cholesterol 11/27/22 #90 tabs losartan 50 mg tablet 50 mg PO DAILY High blood pressure 11/27/22 #90 tabs epinephrine 0.3 mg/0.3 mL 0.3 mg (0.3 mL) IM Q10M PRN 12/13/22 injection, auto-injector anaphylaxis #2 ea triamcinolone acetonide 0.5 % 1 applic topical TID #15 grams 10/16/23 topical cream Allergies Allergy/AdvReac Type Severity Reaction Status Date / Time codeine Allergy Verified 11/27/22 09:04 [facility] Disclaimer: The information contained in this section may have been updated after the patient was seen, as this information can be updated by other users. Medical History CAD (coronary artery disease) Diastolic dysfunction Dyspnea HTN (hypertension) Surgical History H/O cardiac catheterization History of coronary artery stent placement Social History Smoking Status: Current every day smoker tobacco type: cigarettes packs per day: 2 second hand exposure: Yes alcohol intake: current alcohol intake frequency: 3 or more drinks per day substance use type: marijuana current occupational status: employed Travel in the last 8 weeks: Inside the [place] caffeine: Yes ROS Obtained: Yes All systems reviewed & no additional complaints except as documented Constitutional Constitutional: Reports system reviewed and no additional complaints, except as documented Eyes Eyes: Reports system reviewed and no additional complaints, except as documented ENT Ears, Nose, Mouth, and Throat: Reports system reviewed and no additional com plaints, except as documented Cardiovascular Cardiovascular: Reports system reviewed and no additional complaints, except as documented Respiratory Respiratory: Reports system reviewed and no additional complaints, except as documented Gastrointestinal Gastrointestingal: Reports system reviewed and no additional complaints, except as documented Genitourinary Male Genitourinary: Reports system reviewed and no additional complaints, except as documented Musculoskeletal Musculoskeletal: Reports system reviewed and no additional complaints, except as documented Integumentary/Breasts Skin/Breast: Reports system reviewed and no additional complaints, except as documented, Reports redness, Reports pruritus and Reports skin swelling Neurologic Neurologic: Reports system reviewed and no additional complaints, except as documented Endocrine Endocrine: Reports system reviewed and no additional complaints, except as documented Hematologic/Lymphatic Henatologic/Lymphatic: Reports system reviewed and no additional complaints, except as documented Allergic/Immunologic Allergic/Immunologic: Reports system reviewed and no additional complaints, except as documented, Reports as per HPI and Reports other Physical Exam General General appearance: alert and in no apparent distress Head Head exam: atraumatic and normocephalic Eye Eye exam: Present normal appearance ENT ENT exam: Present normal exam and normal oropharynx Neck Neck exam: Present normal inspection; Absent lymphadenopathy Chest Chest inspection: Present normal inspection and symmetric chest wall rise Respiratory Respiratory exam: Present wheezes Expanded Respiratory Exam Location: Left: wheezes (Heavy smoker. Pt states he always has a wheeze.), Right: wheezes (Heavy smoker. Pt states he always has a wheeze.) and Upper: wheezes (Heavy smoker. Pt states he always has a wheeze.) Cardiovascular Cardiovascular exam: Present regular rate and normal rhythm Abdominal Exam Abdominal exam: Present soft and normal bowel sounds Extremities Exam Extremities exam: Present normal inspection Back Exam Back exam: Present normal inspection Neurological Exam Neurological exam: Present alert and oriented X3 Psychiatric Psychiatric exam: Present normal affect and normal mood Skin Skin exam: Present erythema Expanded Skin Exam Type of lesion: Present bite/sting Distribution: RUE Description: Present erythematous and swelling Lymphatic Lymphatic Findings: no adenopathy Medical Decision Making Robert Inquiry Pt receiving controlled substance: No Robert was queried for this patient: No
[2023-10-16 09:15] VITALS: BP 146/68; PULSE 82; RESP 18; TEMP 36.6; O2SAT 96
== END 2023-10-16 09:15 | disposition home or self-care (01) ==
PROVIDERS: Emergency Provider Nurse Practitioner Family; PCP Family Medicine
DX: T63.461A Toxic effect of venom of wasps, accidental (unintentional), initial encounter (principal); Z91.038 Other insect allergy status
CPT/HCPCS: 99204; 99212; G0463

== ENCOUNTER 2024-09-01 07:09 | Outpatient (CLI) | payer BC, SELFPAY ==
--- NOTE | 2024-09-01 07:12 | CT_ITS ---
FINAL REPORT TECHNIQUE: Thin section axial images were obtained through the lungs using a low-dose technique per lung cancer screening protocol. Reconstruction images were obtained using the axial data. Exam was performed using dose reduction technique. This study was performed with techniques to keep radiation doses as low as reasonably achievable (ALARA). Individualized dose reduction techniques using automated exposure control or adjustment of mA and/or kV according to the patient's size were employed. CLINICAL HISTORY: SCREENING current smoker 1ppd x42 years COMPARISON: None FINDINGS: CTDLvol: 2.90 DLP: 101.60 Current smoker 42 pack year history Lungs: No acute pulmonary abnormality. No suspicious nodules. There is evidence of prior granulomatous disease. Lymph nodes: No thoracic lymphadenopathy. Mediastinum: Heart size is normal. Prominent coronary artery calcifications are present. Pleura/pericardium: No pleural or pericardial effusion. Other: No acute abnormality in the upper abdomen. IMPRESSION: No suspicious pulmonary nodule or mass. Lung RADS: 1S, the S designation for the prominent coronary artery calcifications. Recommendation: 12-month follow-up LDCT Reviewed, Interpreted and Dictated by Lisa Davis MD Transcribed by Luanne Sahni Authenticated and [facility]
== END 2024-09-01 23:59 | disposition home or self-care (01) ==
LOC: RAD 07:10
PROVIDERS: PCP Family Medicine; Visit Provider Family Medicine
DX: F17.210 Nicotine dependence, cigarettes, uncomplicated (principal); Z12.2 Encounter for screening for malignant neoplasm of respiratory organs
CPT/HCPCS: 71271